=== PATIENT | female | born 1955 | race Caucasian/White ===

== ENCOUNTER 2025-03-29 22:56 | Inpatient (IN) | payer BC ==
[~2025-03-29] VITALS: Ht 172.7 cm; Wt 62.6 kg
[2025-03-29] MEDS ORDERED: LEVO125T PO (23:12)
[2025-03-29] MEDS ORDERED: HYDR12.55 PO (23:12)
[2025-03-30 03:05] LABS: PLATELET COUNT (AUTO) 253 K/uL (179-408); RED BLOOD CELL COUNT(AUTO) 4.35 MIL/uL (3.63-4.92); RED CELL DISTRIBUTION WIDTH 14.1 % (12.3-17.7); WHITE BLOOD COUNT (AUTO) 6.7 K/uL (3.8-11.8)
[2025-03-30 03:18] LABS: CREATININE 0.6 mg/dL (0.6-1.3); SODIUM SERUM 139.0 mmol/L (136-145); UREA NITROGEN, BLOOD 21.0 mg/dL (7-18)
[2025-03-30 03:24] LABS: ASPARTATE AMINOTRANSFERASE 42.0 U/L (15-37); TOTAL PROTEIN, SERUM 6.0 g/dL (6.4-8.2)
[2025-03-30] MEDS ORDERED: FURO20TA4 PO (04:43)
[2025-03-30] MEDS ORDERED: CLIN-118 PO (04:43)
[2025-03-30] MEDS ORDERED: CLINDAMYCIN 600 MG PIGGYBACK**ER OMNI IV ONE (05:17)
[2025-03-30] MEDS: CLINDAMYCIN PHOSPHATE 600 MG/4 ML VIAL IM STA (05:22)
[2025-03-30] MEDS: CLINDAMYCIN PHOSPHATE IV 600 MG in IV DEXTROSE 5% 100 ML IV ONE (05:23)
[2025-03-30] MEDS ORDERED: FUROSEMIDE 40 MG/4 ML VIAL ONE (07:35)
[2025-03-30] MEDS: FUROSEMIDE 40 MG/4 ML VIAL IV ONE (07:40)
[2025-03-30] MEDS ORDERED: REMEDY ESSENTIAL ZINC PASTE 113 GM TP PRN (08:45)
[2025-03-30] MEDS ORDERED: HYDROCODONE/APAP 5-325MG TABLET PO PRN (08:45)
[2025-03-30] MEDS ORDERED: ACETAMINOPHEN 325 MG TABLET PO PRN (08:45)
[2025-03-30] MEDS ORDERED: MAGNESIUM HYDROXIDE 30 ML LIQUID UDC PO PRN (08:45)
[2025-03-30] MEDS ORDERED: ONDANSETRON 4 MG/2 ML VIAL IV PRN (08:45)
[2025-03-30] MEDS ORDERED: LORAZEPAM 1 MG TABLET PO PRN (11:00)
[2025-03-30] MEDS ORDERED: FUROSEMIDE 20 MG TABLET PO SCH (11:15)
[2025-03-30] MEDS: HYDROCHLOROTHIAZIDE 12.5 MG CAPSULE PO SCH (12:30)
[2025-03-30] MEDS: LEVOTHYROXINE SODIUM 125 MCG TABLET PO SCH (12:30)
[2025-03-30 12:34] VITALS: BP 103/52; TEMP 98; O2SAT 96
[2025-03-30] MEDS: CLINDAMYCIN PHOSPHATE IV 600 MG in IV DEXTROSE 5% 100 ML IV SCH (14:00)
[2025-03-30] MEDS ORDERED: LEVO100T10 PO (14:54)
[2025-03-31] MEDS ORDERED: PANTOPRAZOLE SODIUM 40 MG TABLET.DR PO SCH (07:00)
== END 2025-03-30 16:15 | disposition left against medical advice (07) | DRG 603 ==
LOC: ER 23:10 → MS IN 03-30 09:38 → MEDSURG3 03-30 12:05
PROVIDERS: ADMIT Nurse Practitioner Acute Care; ATTEND Nurse Practitioner Acute Care
DX: L03.116 Cellulitis of left lower limb (principal); Z59.02 Unsheltered homelessness; E44.0 Moderate protein-calorie malnutrition; I50.32 Chronic diastolic (congestive) heart failure; L03.115 Cellulitis of right lower limb; Z53.29 Procedure and treatment not carried out because of patient's decision for other reasons; E03.9 Hypothyroidism, unspecified; Z68.21 Body mass index [BMI] 21.0-21.9, adult; E88.09 Other disorders of plasma-protein metabolism, not elsewhere classified; Z85.3 Personal history of malignant neoplasm of breast; I11.0 Hypertensive heart disease with heart failure; T50.1X6A Underdosing of loop [high-ceiling] diuretics, initial encounter; Z91.148 Patient's other noncompliance with medication regimen for other reason; Y92.410 Unspecified street and highway as the place of occurrence of the external cause; Z98.82 Breast implant status
CPT/HCPCS: 36415; 71045; 84484; 85025; 87040; A4606; A4663; G0378; J1938; J3490

== ENCOUNTER 2025-05-07 21:44 | Emergency (ER) | payer BC ==
[~2025-05-07] VITALS: Ht 172.7 cm; Wt 54.4 kg
[~2025-05-07 21:44] MED LIST: HYDR12.55 PO; LEVO100T10 PO
[2025-05-07 21:47] VITALS: BP 145/96; O2SAT 98
== END 2025-05-07 22:05 | disposition left against medical advice (07) ==
LOC: ER 21:46
DX: H57.89 Other specified disorders of eye and adnexa (principal); F17.200 Nicotine dependence, unspecified, uncomplicated; Z79.899 Other long term (current) drug therapy; Z88.0 Allergy status to penicillin; Z88.2 Allergy status to sulfonamides
CPT/HCPCS: A4606; A4663

== ENCOUNTER 2025-07-06 19:44 | Emergency (ER) | payer BC ==
[~2025-07-06] VITALS: Ht 172.7 cm; Wt 56.7 kg
[2025-07-06 20:00] VITALS: BP 150/79
[2025-07-06] MEDS ORDERED: LEVO25TA9 PO (23:22)
[2025-07-06] MEDS ORDERED: HYDR-501 PO (23:22)
[2025-07-06] MEDS ORDERED: AMPH30TA3 PO (23:22)
[2025-07-06 23:42] VITALS: BP 140/76; O2SAT 96
== END 2025-07-06 23:43 | disposition home or self-care (01) ==
LOC: ER 19:44
DX: R21 Rash and other nonspecific skin eruption (principal); Z76.0 Encounter for issue of repeat prescription; L50.9 Urticaria, unspecified; F17.200 Nicotine dependence, unspecified, uncomplicated; Z79.890 Hormone replacement therapy; Z79.899 Other long term (current) drug therapy; Z60.2 Problems related to living alone; Z88.0 Allergy status to penicillin; Z88.2 Allergy status to sulfonamides; Z91.018 Allergy to other foods
CPT/HCPCS: A4606; A4663

== ENCOUNTER 2025-07-07 12:27 | Emergency (ER) | payer BC ==
[~2025-07-07] VITALS: Ht 172.7 cm; Wt 56.7 kg
[~2025-07-07 12:27] MED LIST changes: +AMPH30TA3 PO; +HYDR-501 PO; +LEVO25TA9 PO
[2025-07-07 12:46] VITALS: BP 181/98
[2025-07-07] MEDS ORDERED: OXYCODONE/APAP 5-325 MG TABLET ONE (13:50)
[2025-07-07] MEDS: OXYCODONE/APAP 5-325 MG TABLET PO ONE ×2 (13:54→14:18)
[2025-07-07 14:48] VITALS: BP 165/89; TEMP 98.2; O2SAT 98
== END 2025-07-07 14:49 | disposition home or self-care (01) ==
LOC: ER 12:27
DX: S52.122A Displaced fracture of head of left radius, initial encounter for closed fracture (principal); F17.200 Nicotine dependence, unspecified, uncomplicated; I11.0 Hypertensive heart disease with heart failure; E03.9 Hypothyroidism, unspecified; I50.9 Heart failure, unspecified; Z59.00 Homelessness unspecified; Z79.890 Hormone replacement therapy; Z79.899 Other long term (current) drug therapy; Z88.0 Allergy status to penicillin; Z88.2 Allergy status to sulfonamides; Z88.7 Allergy status to serum and vaccine; Z91.018 Allergy to other foods; Z60.2 Problems related to living alone; Y04.0XXA Assault by unarmed brawl or fight, initial encounter; Y93.89 Activity, other specified; Y92.89 Other specified places as the place of occurrence of the external cause; Y99.9 Unspecified external cause status
CPT/HCPCS: 73090; 73120; A4606; A4663

== ENCOUNTER 2025-07-08 12:45 | Emergency (ER) | payer BC ==
[~2025-07-08] VITALS: Ht 172.7 cm; Wt 56.7 kg
== END 2025-07-08 15:23 | disposition left against medical advice (07) ==
LOC: ER 12:45
DX: S52.122A Displaced fracture of head of left radius, initial encounter for closed fracture (principal); I11.0 Hypertensive heart disease with heart failure; E03.9 Hypothyroidism, unspecified; F17.200 Nicotine dependence, unspecified, uncomplicated; I50.9 Heart failure, unspecified; Z59.00 Homelessness unspecified; Z79.890 Hormone replacement therapy; Z79.899 Other long term (current) drug therapy; Z88.0 Allergy status to penicillin; Z88.2 Allergy status to sulfonamides; Z88.7 Allergy status to serum and vaccine; Z91.018 Allergy to other foods; Y04.0XXA Assault by unarmed brawl or fight, initial encounter; Y93.89 Activity, other specified; Y92.89 Other specified places as the place of occurrence of the external cause; Y99.9 Unspecified external cause status
CPT/HCPCS: A4606; A4663